=== PATIENT | female | born 1990 | race Asian ===

== ENCOUNTER 2020-07-24 18:52 | Emergency (ER) | payer MEDICAID ==
[~2020-07-24] VITALS: Ht 157.5 cm; Wt 61.0 kg
[2020-07-24] MEDS ORDERED: IBUP-2028 MT (20:21)
[2020-07-24] MEDS ORDERED: IBUPROFEN 600MG TABLET PO ONE (20:30)
[2020-07-24 21:00] VITALS: BP 130/85
== END 2020-07-24 22:06 | disposition home or self-care (01) ==
LOC: ER 18:52
DX: S09.8XXA Other specified injuries of head, initial encounter (principal); W22.8XXA Striking against or struck by other objects, initial encounter; Y93.89 Activity, other specified; Y92.89 Other specified places as the place of occurrence of the external cause; Y99.8 Other external cause status
CPT/HCPCS: 81025; 99282

== ENCOUNTER 2020-07-27 16:44 | Emergency (ER) | payer MEDICAID ==
[~2020-07-27] VITALS: Ht 157.5 cm; Wt 64.0 kg
[~2020-07-27 16:44] MED LIST: IBUP-2028 MT
[2020-07-27] MEDS ORDERED: DIPHENHYDRAMINE 25MG CAPSULE PO ONE (17:30)
[2020-07-27] MEDS ORDERED: ACETAMINOPHEN 325MG TABLET PO ONE (17:30)
[2020-07-27] MEDS ORDERED: METOCLOPRAMIDE HCL 10MG TABLET PO ONE (17:30)
[2020-07-27] MEDS ORDERED: ASPI-964 PO (18:02)
[2020-07-27] MEDS ORDERED: KETOROLAC 30MG/ML VIAL IM ONE (18:15)
[2020-07-27 18:39] VITALS: BP 126/81
== END 2020-07-27 18:41 | disposition home or self-care (01) ==
LOC: ER 16:54
DX: R51.9 Headache, unspecified (principal); R42 Dizziness and giddiness; R11.0 Nausea; Z79.899 Other long term (current) drug therapy
CPT/HCPCS: 70450; 96372; 99284; J1885; J8597; Q0163

== ENCOUNTER 2020-10-28 19:36 | Emergency (ER) | payer MEDICAID ==
[~2020-10-28] VITALS: Ht 157.5 cm; Wt 65.0 kg
[~2020-10-28 19:36] MED LIST changes: +ASPI-964 PO
[2020-10-28] MEDS ORDERED: ACETAMINOPHEN 325MG TABLET PO STA (19:52)
[2020-10-28 20:25] LABS: CLARITY URINE CLEAR (CLEAR); COLOR URINE YELLOW (YELLOW); KETONES URINE NEGATIVE (NEGATIVE); LEUKOCYTE ESTERASE URINE TRACE (NEGATIVE); NITRITE URINE POSITIVE (NEGATIVE); OCCULT BLOOD URINE 2+ (NEGATIVE); PH URINE 6.5 (4.5-8.0); PROTEIN URINE NEGATIVE (NEGATIVE); SPECIFIC GRAVITY URINE 1.024 (1.005-1.030); UROBILINOGEN URINE 0.2 E.U./dL (0.2-1.0)
[2020-10-28 20:28] LABS: BASOPHILS % 0.7 % (0.0-2.0); EOSINOPHILS % 1.2 % (0.0-5.0); HEMATOCRIT. 36.3 % (36.0-48.0); HEMOGLOBIN. 12.5 g/dL (12.0-16.0); LYMPHOCYTES % 21.1 % (20.0-50.0); MEAN CORPUSCULAR HEMOGLOBIN 29.3 pg (28.0-32.0); MEAN CORPUSCULAR VOLUME 84.8 fL (81.0-99.0); MEAN PLATELET VOLUME 6.5 fl (7.4-10.4); MONOCYTES % 5.8 % (2.0-8.0); NEUTROPHILS % 71.2 % (40.0-76.0); PLATELET 350 x1000/uL (130-400); RED BLOOD CELL COUNT 4.28 mill/uL (4.2-5.4); RED CELL DISTRIBUTION WIDTH 12.9 % (11.6-14.6)
[2020-10-28 20:29] LABS: CHLORIDE 106 mEq/L (98-107)
[2020-10-28 20:40] LABS: B-HCG QUANTITATIVE 556 mIU/mL (<3)
[2020-10-28] MEDS ORDERED: CEPHALEXIN 250MG CAPSULE PO NR (21:00)
[2020-10-28] MEDS ORDERED: PREN-135 MT (21:27)
[2020-10-28 22:25] VITALS: BP 117/89
== END 2020-10-28 22:39 | disposition home or self-care (01) ==
LOC: ER 19:36
DX: N93.9 Abnormal uterine and vaginal bleeding, unspecified (principal); Z98.890 Other specified postprocedural states
CPT/HCPCS: 36415; 76801; 80053; 81003; 81025; 84702; 85025; 86850; 86900; 99284